=== PATIENT | female | born 1995 ===

== ENCOUNTER → 2018-09-01 | Outpatient (CLI) | payer OTHER, BC ==
[~2018-09-01] MED LIST: FLUC150T40 PO; METR-1 PO; NORG1TAB95 PO; VITA1CAP46 PO
== END ==
LOC: LAB 14:32
PROVIDERS: ATTEND Student in an Organized Health Care Education/Training Program
DX: N89.8 Other specified noninflammatory disorders of vagina (principal)
CPT/HCPCS: 87210; 87491; 87591